=== PATIENT | male | born 2000 | race Caucasian/White ===

== ENCOUNTER 2024-11-01 15:07 | Outpatient (CLI) | payer OTHER, SELFPAY ==
--- NOTE | ~2024-11-01 | XR_ITS ---
XR lumbar spine 2-3V 11/01/2024 15:59 Indication: Low back pain Procedure: 3 views lumbar spine Comparison: No prior studies for comparison. Findings: There is disc narrowing at L4-5 and L5-S1. There is facet hypertrophy at L5-S1. Pedicles intact. Vertebral body heights are maintained. No evidence for spondylolisthesis. Impression: 1: Mild lumbar spondylosis. Reviewed, dictated and finalized at location O. Impression: 1: Mild lumbar spondylosis.
== END 2024-11-01 15:08 | disposition home or self-care (01) ==
LOC: MICIMG 15:12
PROVIDERS: PCP Physician Assistant; Visit Provider Physician Assistant
DX: M47.816 Spondylosis without myelopathy or radiculopathy, lumbar region (principal)
CPT/HCPCS: 72100